=== PATIENT | female | born 1960 | race Caucasian/White ===

== ENCOUNTER → 2019-06-09 09:48 | Outpatient (CLI) | payer MEDICARE, MEDICAID | END | disposition home or self-care (01) | LOC: D.RT 09:30 → D.RAD 09:48 | PROVIDERS: ATTEND Internal Medicine Pulmonary Disease | DX: J44.9 Chronic obstructive pulmonary disease, unspecified (principal) ==

== ENCOUNTER → 2019-06-21 10:21 | Outpatient (CLI) | payer MEDICARE, MEDICAID | END | disposition home or self-care (01) | LOC: D.RT 10:21 | PROVIDERS: ATTEND Internal Medicine Pulmonary Disease | DX: J44.9 Chronic obstructive pulmonary disease, unspecified (principal) ==

== ENCOUNTER 2019-08-21 16:58 | Inpatient (IN) | payer MEDICARE, MEDICAID ==
[~2019-08-21] VITALS: Ht 160 cm; Wt 80.6 kg
[2019-08-21] MEDS ORDERED: SYMBICORT 16010.2 GM INH (17:07)
[2019-08-21] MEDS ORDERED: ALBUTEROL1.25 MG/3 INH (17:08)
[2019-08-21] MEDS ORDERED: RESCUE INHALER (17:08)
[2019-08-21] MEDS ORDERED: IBUPROFEN800 MG PO (17:08)
[2019-08-21 17:41] LABS: BASOPHILS 0.5 % (0-2); HEMATOCRIT 42.5 % (36.0-48.0); IMMATURE GRANULOCYTES 0.1 % (0-5); LYMPHOCYTES 29.6 % (15-50); MCH 29.7 pg (26.0-34.0); MCHC 32.9 g/dL (31.0-37.0); MEAN PLATELET VOLUME 9.6 fL (7.4-10.4); MONOCYTES 6.7 % (2-11); NEUTROPHILS 57.1 % (40-80); PLATELET COUNT 219 10x3/uL (130-400); RBC 4.72 10x6/uL (4.00-5.40); RDW 13.5 % (11.5-14.5); WBC 9.5 10x3/uL (4.8-10.8)
[2019-08-21 17:50] LABS: INR 0.95 (0.85-1.17); PROTIME 12.7 SECONDS (11.6-15.0)
[2019-08-21 17:51] LABS: CALC OSMOLALITY 281 mosm/kg (275-300); CHLORIDE - SERUM 104 mmol/L (98-107); CREATININE - SERUM 0.9 mg/dL (0.6-1.3); GLUCOSE 102 mg/dL (74-106); SODIUM 141 mmol/L (136-145); UREA NITROGEN 14 mg/dL (7-18); eGFR NON AFRICAN AMERICAN 68 mL/min (90-120)
[2019-08-21 18:05] LABS: ALBUMIN 3.4 g/dL (3.4-5.0); ALKALINE PHOSPHATASE 57 U/L (30-120); ALT (SGPT) 25 U/L (10-68); BILIRUBIN - TOTAL 0.28 mg/dL (0.2-1.3); CKMB 5.7 U/L (0.0-3.6); CREATINE KINASE 441 UL (21-215); PRO BNP 60 pg/mL (0-125)
[2019-08-21 18:06] LABS: TROPONIN-I < 0.017 ng/mL (0.000-0.060)
[2019-08-21 21:00] VITALS: BP 169/94
--- NOTE | 2019-08-21 21:30 | NUR ---
PT EATING [place] BROUGHT IN BY FAMILY. PT AWAKE AND ALERT.
[2019-08-21 22:00] VITALS: BP 124/78
[2019-08-21 23:00] VITALS: BP 159/88
--- NOTE | 2019-08-21 23:03 | NUR ---
PT C/O INCREASED SOB- PULSE OX 90 ON OXYGEN AT 5L. RESPIRATORY CALLED FOR STAT UPDRAFT.
--- NOTE | 2019-08-21 23:12 | NUR ---
R/T HERE TO GIVE CODYB.
--- NOTE | 2019-08-22 00:05 | NUR ---
PT TO ROOM VIA STRETCHER ACCOMPANIED BY HOSPITAL STAFF.
[2019-08-22 00:51] VITALS: BP 136/92; BMI 31.1
[2019-08-22] MEDS ORDERED: ALBUTEROL SULF8.5 GM INH (01:13)
[2019-08-22 04:00] VITALS: BP 133/81
[2019-08-22 05:33] LABS: BASOPHILS 0.3 % (0-2); EOSINOPHILS 0.1 % (0-7); HEMATOCRIT 42.7 % (36.0-48.0); IMMATURE GRANULOCYTES 0.3 % (0-5); LYMPHOCYTES 11.2 % (15-50); MCH 29.5 pg (26.0-34.0); MCHC 32.8 g/dL (31.0-37.0); MCV 90.1 fL (80.0-100.0); MEAN PLATELET VOLUME 9.8 fL (7.4-10.4); MONOCYTES 0.8 % (2-11); NEUTROPHILS 87.3 % (40-80); PLATELET COUNT 217 10x3/uL (130-400); RBC 4.74 10x6/uL (4.00-5.40); RDW 13.4 % (11.5-14.5); WBC 7.9 10x3/uL (4.8-10.8)
[2019-08-22 05:41] LABS: BILIRUBIN NEGATIVE (NEGATIVE); GLUCOSE NEGATIVE (NEGATIVE); KETONE NEGATIVE (NEGATIVE); NITRITE NEGATIVE (NEGATIVE); SPECIFIC GRAVITY 1.005 (1.005-1.020); UROBILINOGEN NORMAL (NORMAL)
[2019-08-22 06:03] LABS: ALBUMIN 3.5 g/dL (3.4-5.0); ANION GAP 10.9 mmol/L (8-16); BILIRUBIN - TOTAL 0.37 mg/dL (0.2-1.3); CALCIUM 9.3 mg/dL (8.5-10.1); CARBON DIOXIDE 30.6 mmol/L (21.0-32.0); CREATININE - SERUM 0.9 mg/dL (0.6-1.3); POTASSIUM - SERUM 4.5 mmol/L (3.5-5.1); PROTEIN - SERUM 7.2 g/dL (6.4-8.2)
[2019-08-22 08:36] VITALS: BP 125/81
--- NOTE | 2019-08-22 09:39 | NUR ---
PT AWAKE AND ORIETNED, C/O HEADACHE, NO OTHER COMPLAINTS OR CONCERS. DOES WANT TO GO HOME SOON, INFORMED HER IT WAS UNLIKELY SHE WOULD LEAVE TODAY. CL INR EACH, SRX2.
[2019-08-22 12:22] VITALS: BP 146/75
[2019-08-22 17:24] VITALS: BP 130/88
--- NOTE | 2019-08-22 19:26 | NUR ---
REPORT RECEIVED. BEDSIDE SHIFT REPORT COMPLETE. PT RESTING IN BED RR EVEN AND UNLABORED. NO S/SX OF DISTRESS OBSERVED. EDUCATED USE OF CALL LIGHT FOR ASSISTANCE. PT DENIES NEEDS AT THIS TIME. WILL CTM.
[2019-08-22 20:00] VITALS: BP 128/80
[2019-08-23] VITALS: BP 127/72
[2019-08-23 04:00] VITALS: BP 111/63
[2019-08-23 06:40] LABS: BASOPHILS 0.1 % (0-2); EOSINOPHILS 0 % (0-7); HEMATOCRIT 44.6 % (36.0-48.0); HEMOGLOBIN 14.6 g/dL (12-16); IMMATURE GRANULOCYTES 0.3 % (0-5); LYMPHOCYTES 7.4 % (15-50); MCH 29.6 pg (26.0-34.0); MCHC 32.7 g/dL (31.0-37.0); MCV 90.3 fL (80.0-100.0); MEAN PLATELET VOLUME 9.7 fL (7.4-10.4); MONOCYTES 3.6 % (2-11); NEUTROPHILS 88.6 % (40-80); PLATELET COUNT 229 10x3/uL (130-400); RBC 4.94 10x6/uL (4.00-5.40); RDW 13.5 % (11.5-14.5)
[2019-08-23 06:51] LABS: ALBUMIN 3.8 g/dL (3.4-5.0); ALKALINE PHOSPHATASE 64 U/L (30-120); ALT (SGPT) 23 U/L (10-68); BILIRUBIN - TOTAL 0.24 mg/dL (0.2-1.3); CALC OSMOLALITY 281 mosm/kg (275-300); CARBON DIOXIDE 32.5 mmol/L (21.0-32.0); CHLORIDE - SERUM 104 mmol/L (98-107); CREATININE - SERUM 0.8 mg/dL (0.6-1.3); GLUCOSE 128 mg/dL (74-106); POTASSIUM - SERUM 4.6 mmol/L (3.5-5.1); PROTEIN - SERUM 7.6 g/dL (6.4-8.2); SODIUM 140 mmol/L (136-145); UREA NITROGEN 15 mg/dL (7-18); eGFR NON AFRICAN AMERICAN 77 mL/min (90-120)
[2019-08-23 06:58] LABS: WBC 16.6 10x3/uL (4.8-10.8)
--- NOTE | 2019-08-23 11:27 | NUR ---
I have reviewed this patient and I concur with the Shift Assessment completed by the Licensed Practical Nurse today this shift.
--- NOTE | 2019-08-23 14:40 | NUR ---
PT TOOK SHOWER BY SELF. NO ASSISTANCE NEEDED.
[2019-08-23 15:36] VITALS: Ht 160 cm; Wt 80.6 kg
--- NOTE | 2019-08-23 19:30 | NUR ---
PT CONT TO CO OF BRADEN AND ASKING FOR TYLENOL BED LOW AND LOCKED CALL LIGHT IN REACH IV AT 25
[2019-08-23 20:00] VITALS: BP 137/81
--- NOTE | 2019-08-23 22:21 | NUR ---
PT BEGINNING TO COUGH UP SPUTUM CATCH PROVIDED FOR PT
[2019-08-24] VITALS: BP 136/80
[2019-08-24 04:00] VITALS: BP 121/61; BP 121/68
[2019-08-24 05:37] LABS: BASOPHILS 0 % (0-2); EOSINOPHILS 0 % (0-7); HEMATOCRIT 44.6 % (36.0-48.0); HEMOGLOBIN 14.6 g/dL (12-16); IMMATURE GRANULOCYTES 0.4 % (0-5); LYMPHOCYTES 10.7 % (15-50); MCH 29.8 pg (26.0-34.0); MCHC 32.7 g/dL (31.0-37.0); MEAN PLATELET VOLUME 9.9 fL (7.4-10.4); MONOCYTES 2.5 % (2-11); NEUTROPHILS 86.4 % (40-80); PLATELET COUNT 243 10x3/uL (130-400); RDW 13.6 % (11.5-14.5); WBC 14.1 10x3/uL (4.8-10.8)
[2019-08-24 05:57] LABS: ALBUMIN 3.6 g/dL (3.4-5.0); BILIRUBIN - TOTAL 0.2 mg/dL (0.2-1.3); CALCIUM 8.9 mg/dL (8.5-10.1); CARBON DIOXIDE 30.5 mmol/L (21.0-32.0); POTASSIUM - SERUM 4.5 mmol/L (3.5-5.1); PROTEIN - SERUM 7.3 g/dL (6.4-8.2)
[2019-08-24 09:00] VITALS: BP 137/83
--- NOTE | 2019-08-24 10:00 | NUR ---
RESTING QUIETLY IN BED, ALERT AND ORIENTED X 4, PLEASANT MOOD, COOPERATIVE. DENIES PAIN AT THIS TIME. MEDS ADMIN PER ORDERS WITH COMPLETE MED COMPLIANCE NOTED. IV ACCESS TO RIGHT HAND WITH NORMAL SALINE INFUSING ORDERED. NO S/S DISTRESS, DENIES NEEDS, CALL LIGHT AT HAND, INSTRUCTED TO CALL WITH NEEDS.
[2019-08-24 12:00] VITALS: BP 147/87
[2019-08-24 16:00] VITALS: BP 149/79
--- NOTE | 2019-08-24 17:40 | NUR ---
PT. C/O HEADACHE, LEVEL /10. TYLENOL 650 MG ADMIN.
--- NOTE | 2019-08-24 18:28 | NUR ---
PATIENT REPORTS THAT HEADACHE HAS SUBSIDED.
--- NOTE | 2019-08-24 19:38 | NUR ---
EVENING ROUNDS COMPLETE. PT SITTING UP IN BED. NO SIGNS OF DISTRESS. PT DENIES ANY PAIN OR NEEDS AT THIS TIME. CL IN REACH, BED IN LOWEST POSITION
[2019-08-25] VITALS: BP 119/76
--- NOTE | 2019-08-25 01:11 | NUR ---
I have reviewed this patient and I concur with the Shift Assessment completed by the Licensed Practical Nurse today this shift.
[2019-08-25 04:00] VITALS: BP 106/68
[2019-08-25 04:37] LABS: BASOPHILS 0.1 % (0-2); EOSINOPHILS 0 % (0-7); HEMATOCRIT 43.4 % (36.0-48.0); HEMOGLOBIN 14.1 g/dL (12-16); IMMATURE GRANULOCYTES 0.3 % (0-5); LYMPHOCYTES 12.9 % (15-50); MCH 29.4 pg (26.0-34.0); MCHC 32.5 g/dL (31.0-37.0); MCV 90.6 fL (80.0-100.0); MEAN PLATELET VOLUME 9.7 fL (7.4-10.4); MONOCYTES 3.5 % (2-11); NEUTROPHILS 83.2 % (40-80); PLATELET COUNT 218 10x3/uL (130-400); RBC 4.79 10x6/uL (4.00-5.40); RDW 13.5 % (11.5-14.5); WBC 11.4 10x3/uL (4.8-10.8)
[2019-08-25 04:52] LABS: ALBUMIN 3.3 g/dL (3.4-5.0); ALKALINE PHOSPHATASE 60 U/L (30-120); BILIRUBIN - TOTAL 0.17 mg/dL (0.2-1.3); CALC OSMOLALITY 284 mosm/kg (275-300); CALCIUM 8.4 mg/dL (8.5-10.1); CARBON DIOXIDE 31.3 mmol/L (21.0-32.0); CHLORIDE - SERUM 104 mmol/L (98-107); CREATININE - SERUM 0.8 mg/dL (0.6-1.3); GLUCOSE 171 mg/dL (74-106); POTASSIUM - SERUM 4.3 mmol/L (3.5-5.1); PROTEIN - SERUM 6.6 g/dL (6.4-8.2); SODIUM 140 mmol/L (136-145); UREA NITROGEN 18 mg/dL (7-18); eGFR NON AFRICAN AMERICAN 77 mL/min (90-120)
[2019-08-25 04:57] LABS: ALT (SGPT) 36 U/L (10-68)
[2019-08-25 08:23] VITALS: BP 125/78
[2019-08-25] MEDS ORDERED: PREDNISONE10 MG PO (09:41)
[2019-08-25] MEDS ORDERED: LEVAQUIN750 MG PO (09:41)
--- NOTE | 2019-08-25 12:41 | MORECARE ---
CASE MANAGEMENT DISCHARGE SUMMARY PATIENT: SANJUANA CAMARILLO UNIT: [id number] ADM DATE: 08/21/19 AGE: 58 : 56 SEX: F ROOM/BED: D.6847 AUTHOR: MINGODOC PHYSICIAN: REFERRING PHYSICIAN: PEGGY KEY DO DATE OF SERVICE: 08/25/19 Discharge Plan Patient Name: SANJUANA CAMARILLO Facility: [facility]:[place] : 1960 Planned Disposition: Home or Self Care Anticipated Discharge Date: Discharge Date: Expected LOS: Initial Reviewer: [email or web address] Initial Review Date: 08/21/2019 Generated: 08/25/19 1:40 pm Comments DCP- Discharge Planning Updated by [id number]: Lay Ny on 08/25/19 11:[address] Patient Name: SANJUANA CAMARILLO Admission Status: ER Accout number: [id number] Admission Date: 08-21-2019 : 1960 Admission Diagnosis: Attending: PEGGY KEY Current LOS: 4 Anticipated DC Date: Planned Disposition: Home or Self Care Primary Insurance: [facility] MEDICARE SOLUTIONS Discharge Planning Comments: CM met with patient to complete initial dc planning assessment. CM educated patient on the CM role and verbal consent given by patient to complete assessment. Patient lives at home alone where she is independent with her care. At discharge patient plans to return home and feels this is a safe discharge. She has a nebulizer, portable O2, concentrator, walker, and cane at home. TERE with [facility] [employer]. CM discussed availability of home health, rehab services, and medical equipment. She did not think she needed anything. She stated that her son will be driving her home. IMM served and explained. Patient denied known discharge needs at this time. CM will continue to follow and will assist as needed with dc plans/needs. [place]man: Lay Ny DCPIA - Discharge Planning Initial Assessment Updated by [email or web address]: Lay Ny on 08/25/19 12:34 pm * Is the patient Alert and Oriented? Yes * How many steps to enter\exit or inside your home? 3/ * PCP DR DUEÑAS * Pharmacy [facility] * Preadmission Environment Home Alone * ADLs Independent * Equipment Cane Nebulizer Oxygen Rolling Walker Shower Chair * List name and contact numbers for known caregivers / representatives who currently or will assist patient after discharge: JEANETTE (DAUGHTER) [phone] * Verbal permission to speak to the caregivers and representatives has been obtained from the patient. N/A * Community resources currently utilized None * Additional services required to return to the preadmission environment? No * Can the patient safely return to the preadmission environment? Yes * Has this patient been hospitalized within the prior 30 days at any hospital? No Coverage Notice Reviewer: [id number] Ny Notice Issued Date-Time: 08/25/2019 12:30 Notice Type: IM Discharge Notice Notice Delivered To: Patient Relationship to Patient: [employer] Supervisor Name: Delivery Method: HAND - Hand Delivered Melba Days: Prior Verbal Notification: Recipient Understood Notice: Yes Recipient Signature: Yes Med Rec Note Co-signed by Attending: Coverage Notice Comment: Reviewer: [id number] Ny Notice Issued Date-Time: 08/25/2019 12:30 Notice Type: Patient Choice Letter Notice Delivered To: Patient Relationship to Patient: [employer] Supervisor Name: Delivery Method: HAND - Hand Delivered Melba Days: Prior Verbal Notification: Recipient Understood Notice: Yes Recipient Signature: Yes Med Rec Note Co-signed by Attending: Coverage Notice Comment: michelle Patient Name: SANJUANA CAMARILLO Page [phone] at 1241 All edits/amendments must be made on the electronic document DICTATION DATE: 08/25/19 1240 MOVIE CRITIC: ELDER 08/25/19 1240 RPT#: [id number] DC DATE: STATUS: ADM IN [facility] [address] [place] [address] END OF REPORT
--- NOTE | 2019-08-25 13:50 | NUR ---
PATIENT IV THERAPY DC'ED FROM RIGHT HAND IV TIP INTACT. DISCHARGE INSTRUCTIONS GIVEN. PATIENT VERBALIZED UNDERSTANDING. WILL NOTIFY ME WHEN RIDE ARRIVES.
--- NOTE | 2019-08-27 09:14 | MORECARE ---
CASE MANAGEMENT DISCHARGE SUMMARY PATIENT: SANJUANA CAMARILLO UNIT: [id number] ADM DATE: 08/21/19 AGE: 58 : 56 SEX: F ROOM/BED: D.0871 AUTHOR: SHALINI AGUILA PHYSICIAN: REFERRING PHYSICIAN: PEGGY KEY DO DATE OF SERVICE: 08/27/19 Discharge Plan Patient Name: SANJUANA CAMARILLO Facility: [facility]:[place] : 1960 Planned Disposition: Home or Self Care Anticipated Discharge Date: Discharge Date: 08/25/2019 Expected LOS: 0 Initial Reviewer: [email or web address] Initial Review Date: 08/21/2019 Generated: 08/27/19 10:14 am Comments DCP- Discharge Planning Updated by [id number]: Lay Ny on 08/25/19 11:[address] Patient Name: SANJUANA CAMARILLO Admission Status: ER Accout number: [id number] Admission Date: 08-21-2019 : 1960 Admission Diagnosis: Attending: PEGGY KEY Current LOS: 4 Anticipated DC Date: Planned Disposition: Home or Self Care Primary Insurance: [facility] MEDICARE SOLUTIONS Discharge Planning Comments: CM met with patient to complete initial dc planning assessment. CM educated patient on the CM role and verbal consent given by patient to complete assessment. Patient lives at home alone where she is independent with her care. At discharge patient plans to return home and feels this is a safe discharge. She has a nebulizer, portable O2, concentrator, walker, and cane at home. [facility] with [employer] [employer]. CM discussed availability of home health, rehab services, and medical equipment. She did not think she needed anything. She stated that her son will be driving her home. [facility] served and explained. Patient denied known discharge needs at this time. CM will continue to follow and will assist as needed with dc plans/needs. Dividend Clerk: Lay Ny DCPIA - Discharge Planning Initial Assessment Updated by [email or web address]: Lay Ny on 08/25/19 12:34 pm * Is the patient Alert and Oriented? Yes * How many steps to enter\exit or inside your home? 3/2 * PCP DR DUEÑAS * Pharmacy [facility] * Preadmission Environment Home Alone * ADLs Independent * Equipment Cane Nebulizer Oxygen Rolling Walker Shower Chair * List name and contact numbers for known caregivers / representatives who currently or will assist patient after discharge: JEANETTE (DAUGHTER) [phone] * Verbal permission to speak to the caregivers and representatives has been obtained from the patient. N/A * Community resources currently utilized None * Additional services required to return to the preadmission environment? No * Can the patient safely return to the preadmission environment? Yes * Has this patient been hospitalized within the prior 30 days at any hospital? No Coverage Notice Reviewer: [id number] Ny Notice Issued Date-Time: 08/25/2019 12:30 Notice Type: IM Discharge Notice Notice Delivered To: Patient Relationship to Patient: Web Designer Name: Delivery Method: HAND - Hand Delivered Melba Days: Prior Verbal Notification: Recipient Understood Notice: Yes Recipient Signature: Yes Med Rec Note Co-signed by Attending: Coverage Notice Comment: Reviewer: [id number] Ny Notice Issued Date-Time: 08/25/2019 12:30 Notice Type: Patient Choice Letter Notice Delivered To: Patient Relationship to Patient: Web Designer Name: Delivery Method: HAND - Hand Delivered Melba Days: Prior Verbal Notification: Recipient Understood Notice: Yes Recipient Signature: Yes Med Rec Note Co-signed by Attending: Coverage Notice Comment: michelle MELGAR export: 08/25/19 11:41 a Patient Name: SANJUANA CAMARILLO Page [phone] at 0914 All edits/amendments must be made on the electronic document DICTATION DATE: 08/27/19913 SENIOR CONTROLLER: ELDER 08/27/19913 RPT#: [id number] DC DATE:08/25/19 STATUS: DIS IN [facility] [address] [place] [address] END OF REPORT
== END 2019-08-25 13:54 | disposition home or self-care (01) | DRG 193 ==
LOC: D.ER 16:58 → D.MS 21:54 → D.M2 21:54 → D.MS 08-24 21:09
PROVIDERS: Family Medicine; ADMIT Family Medicine; ATTEND Family Medicine
DX: J18.9 Pneumonia, unspecified organism (principal); J96.22 Acute and chronic respiratory failure with hypercapnia; J96.21 Acute and chronic respiratory failure with hypoxia; J44.1 Chronic obstructive pulmonary disease with (acute) exacerbation; J44.0 Chronic obstructive pulmonary disease with (acute) lower respiratory infection; J20.9 Acute bronchitis, unspecified; I10 Essential (primary) hypertension

== ENCOUNTER → 2019-11-09 13:56 | Outpatient (CLI) | payer MEDICARE, MEDICAID ==
[2019-08-23 15:36] VITALS: BMI 31.5
[~2019-11-09 13:56] MED LIST: ALBUTEROL SULF8.5 GM INH; ALBUTEROL1.25 MG/3 INH; IBUPROFEN800 MG PO; LEVAQUIN750 MG PO; PREDNISONE10 MG PO; RESCUE INHALER; SYMBICORT 16010.2 GM INH
== END | disposition home or self-care (01) ==
LOC: D.RAD 10-04 14:45 → D.RT 10-04 15:00 → D.RAD 10-22 09:45
PROVIDERS: ATTEND Internal Medicine Pulmonary Disease
DX: J44.9 Chronic obstructive pulmonary disease, unspecified (principal)

== ENCOUNTER 2020-04-08 14:32 | Emergency (ER) | payer MEDICARE, MEDICAID ==
[2020-04-08 14:39] VITALS: Ht 160 cm
[2020-04-08 15:15] LABS: HEMATOCRIT 43.8 % (36.0-48.0); HEMOGLOBIN 14.2 g/dL (12-16); LYMPHOCYTES 19.8 % (15-50); MCHC 32.4 g/dL (31.0-37.0); MCV 89.6 fL (80.0-100.0); MEAN PLATELET VOLUME 9.4 fL (7.4-10.4); NEUTROPHILS 73.9 % (40-80); PLATELET COUNT 237 10x3/uL (130-400); RBC 4.89 10x6/uL (4.00-5.40); RDW 13.9 % (11.5-14.5); WBC 8.2 10x3/uL (4.8-10.8)
[2020-04-08 15:26] LABS: CALC OSMOLALITY 274 mosm/kg (275-300); CALCIUM 9.2 mg/dL (8.5-10.1); CARBON DIOXIDE 30.3 mmol/L (21.0-32.0); CHLORIDE - SERUM 104 mmol/L (98-107); CREATININE - SERUM 0.7 mg/dL (0.6-1.3); POTASSIUM - SERUM 4.2 mmol/L (3.5-5.1); SODIUM 138 mmol/L (136-145); UREA NITROGEN 10 mg/dL (7-18); eGFR NON AFRICAN AMERICAN 90 mL/min (90-120)
[2020-04-08 15:30] LABS: GLUCOSE 102 mg/dL (74-106)
[2020-04-08 15:36] LABS: APTT 30.8 SECONDS (22.8-39.4); PROTIME 13.1 SECONDS (11.6-15.0)
[2020-04-08 15:43] LABS: ALBUMIN 3.8 g/dL (3.4-5.0); ALKALINE PHOSPHATASE 55 U/L (30-120); ALT (SGPT) 36 U/L (10-68); BILIRUBIN - TOTAL 0.45 mg/dL (0.2-1.3); CKMB 6.6 U/L (0.0-3.6); CREATINE KINASE 376 UL (21-215); PRO BNP 158 pg/mL (0-125); PROTEIN - SERUM 6.8 g/dL (6.4-8.2); TROPONIN-I 0.021 ng/mL (0.000-0.060)
[2020-04-08 16:06] LABS: AMYLASE - SERUM 46 U/L (25-115); LIPASE 74 U/L (73-393)
[2020-04-08] MEDS ORDERED: ACETAMINOPHEN500 M1 PO ×2 (17:38→17:43)
[2020-04-08] MEDS ORDERED: IBUPROFEN800 MG PO ×2 (17:38→17:43)
[2020-04-08] MEDS ORDERED: CYCLOBENZAPRINE10 MG PO ×2 (17:38→17:43)
[2020-04-08] MEDS ORDERED: ZOFRAN ODT4 MG/UDTAB PO (17:43)
[2020-04-08 17:50] LABS: BILIRUBIN NEGATIVE (NEGATIVE); KETONE NEGATIVE (NEGATIVE); NITRITE NEGATIVE (NEGATIVE); UROBILINOGEN NORMAL mg/dL (< 2)
[2020-04-08 18:32] VITALS: BP 122/84
== END 2020-04-08 18:33 | disposition home or self-care (01) ==
LOC: D.ER 14:32
PROVIDERS: Family Medicine
DX: R15.9 Full incontinence of feces (principal); R11.10 Vomiting, unspecified; J44.9 Chronic obstructive pulmonary disease, unspecified; Z99.81 Dependence on supplemental oxygen

== ENCOUNTER 2020-08-20 15:21 | Emergency (ER) | payer MEDICARE, MEDICAID ==
[~2020-08-20] VITALS: Ht 160 cm; Wt 80.9 kg
[~2020-08-20 15:21] MED LIST changes: +ACETAMINOPHEN500 M1 PO; +CYCLOBENZAPRINE10 MG PO; +ZOFRAN ODT4 MG/UDTAB PO
[2020-08-20 15:36] VITALS: BP 129/80; Ht 160 cm; Wt 80.9 kg
[2020-08-20 15:54] LABS: BASOPHILS 1.1 % (0-2); EOSINOPHILS 5.2 % (0-7); HEMATOCRIT 41.6 % (36.0-48.0); HEMOGLOBIN 13.5 g/dL (12-16); IMMATURE GRANULOCYTES 0.2 % (0-5); LYMPHOCYTE ABS# 2.13 10x3/uL (1.18-3.74); LYMPHOCYTES 21.7 % (15-50); MCH 29.4 pg (26.0-34.0); MCHC 32.5 g/dL (31.0-37.0); MCV 90.6 fL (80.0-100.0); MEAN PLATELET VOLUME 9.3 fL (7.4-10.4); MONOCYTES 6.9 % (2-11); NEUTROPHIL ABS# 6.35 10x3/uL (1.56-6.13); NEUTROPHILS 64.9 % (40-80); PLATELET COUNT 211 10x3/uL (130-400); RBC 4.59 10x6/uL (4.00-5.40); RDW 13.4 % (11.5-14.5); WBC 9.8 10x3/uL (4.8-10.8)
[2020-08-20 16:04] LABS: APTT 29.1 SECONDS (22.8-39.4); CALC OSMOLALITY 276 mosm/kg (275-300); CALCIUM 8.9 mg/dL (8.5-10.1); CARBON DIOXIDE 30.4 mmol/L (21.0-32.0); CHLORIDE - SERUM 102 mmol/L (98-107); GLUCOSE 107 mg/dL (74-106); INR 1.07 (0.85-1.17); PROTIME 12.9 SECONDS (11.6-15.0); SODIUM 138 mmol/L (136-145); UREA NITROGEN 14 mg/dL (7-18); eGFR NON AFRICAN AMERICAN 60 mL/min (90-120)
[2020-08-20 16:19] LABS: ALBUMIN 3.6 g/dL (3.4-5.0); ALKALINE PHOSPHATASE 67 U/L (30-120); ALT (SGPT) 23 U/L (10-68); BILIRUBIN - TOTAL 0.29 mg/dL (0.2-1.3); CREATINE KINASE 313 UL (21-215); PRO BNP 73 pg/mL (0-125); TROPONIN-I < 0.017 ng/mL (0.000-0.060)
[2020-08-20 16:33] LABS: INFLUENZA TYPE A NEGATIVE (NEGATIVE); INFLUENZA TYPE B NEGATIVE (NEGATIVE); SARS-CoV-2 ANTIGEN NEGATIVE- SARS-COV-2 (NEGATIVE)
[2020-08-20] MEDS ORDERED: LEVAQUIN750 MG PO (18:32)
[2020-08-20] MEDS ORDERED: STERAPRED DS 1010 MG PO (18:33)
--- NOTE | 2020-08-20 19:16 | NUR ---
REPORT FROM CAM. ASSUMING CARE AT THIS TIME.
--- NOTE | 2020-08-20 20:18 | NUR ---
PATIENT PLACED IN HALLWAY WITH WHEELCHAIR AND OXYGEN TO AWAIT DISCHARGE. NAD NOTED AND AA&OX4.
== END 2020-08-20 21:45 | disposition home or self-care (01) ==
LOC: D.ER 15:21 → D.EDHOLD 16:59 → D.ER 21:45
PROVIDERS: Family Medicine
DX: J44.1 Chronic obstructive pulmonary disease with (acute) exacerbation (principal); I10 Essential (primary) hypertension

== ENCOUNTER → 2020-10-31 12:27 | Outpatient (CLI) | payer MEDICARE, MEDICAID ==
[2020-08-20 15:36] VITALS: BMI 31.6
[~2020-10-31 12:27] MED LIST changes: +STERAPRED DS 1010 MG PO
== END | disposition home or self-care (01) ==
LOC: D.LAB 12:27
PROVIDERS: ATTEND Internal Medicine Pulmonary Disease
DX: J44.9 Chronic obstructive pulmonary disease, unspecified (principal); Z11.52 Encounter for screening for COVID-19

== ENCOUNTER → 2020-11-24 09:57 | Outpatient (CLI) | payer MEDICARE, MEDICAID ==
[2020-08-20 15:36] VITALS: BMI 31.6
== END | disposition home or self-care (01) ==
LOC: D.LAB 09:57
PROVIDERS: ATTEND Internal Medicine Pulmonary Disease
DX: J44.9 Chronic obstructive pulmonary disease, unspecified (principal)

== ENCOUNTER → 2020-11-29 07:52 | Outpatient (CLI) | payer MEDICARE, MEDICAID ==
[2020-08-20 15:36] VITALS: BMI 31.6
== END | disposition home or self-care (01) ==
LOC: D.RT 11-03 09:00
PROVIDERS: ATTEND Internal Medicine Pulmonary Disease
DX: J44.9 Chronic obstructive pulmonary disease, unspecified (principal)

== ENCOUNTER → 2020-12-19 07:54 | Outpatient (CLI) | payer MEDICARE, MEDICAID ==
[2020-08-20 15:36] VITALS: BMI 31.6
== END | disposition home or self-care (01) ==
LOC: D.CT 07:54
PROVIDERS: ATTEND Internal Medicine Pulmonary Disease
DX: D71 Functional disorders of polymorphonuclear neutrophils (principal)